=== PATIENT | male | born 1995 | race African-American/Black ===

== ENCOUNTER 2021-10-08 09:37 | Emergency (ER) | payer OTHER, SELFPAY ==
[2021-10-08 10:15] VITALS: BP 136/79; PULSE 72; RESP 18; TEMP 36.7; O2SAT 98; BMI 32.5
--- NOTE | 2021-10-08 10:49 | ED_ITS ---
HPI - Medical Clearance General Chief complaint: Medical Clearance <THOMAS Ruano Last Filed: 10/08/21 11:14> Stated complaint: LOSS OF TASTE STUFFY NOSE <THOMAS Ruano Last Filed: 10/08/21 11:14> Time Seen by Provider: 10/08/21 10:12 <THOMAS Ruano Last Filed: 10/08/21 11:14> Source: patient <THOMAS Ruano Last Filed: 10/08/21 11:14> Mode of arrival: ambulatory <THOMAS Ruaon Last Filed: 10/08/21 11:14> Limitations: no limitations <THOMAS Ruano Last Filed: 10/08/21 11:14> History of Present Illness HPI Narrative: 26-year-old male with history of mild intermittent asthma presents to the ER for COVID-19 evaluation after he had acute onset of loss of sense of taste. He lives at home with his mother recently tested positive for COVID today. Patient works at [employer] and when he was on his break eating a Big Mac he noticed he could not really takes the sauce which is not normal for him. He also noticed that his sense of smell has decreased today. Otherwise he has no symptoms, including no cough, fever, chest pain, myalgias, headache, sore throat, nasal congestion. <THOMAS Ruano Last Filed: 10/08/21 11:14> MD complaint: medical clearance requested and other (Loss of sense of taste) <THOMAS Ruano Last Filed: 10/08/21 11:14> Onset (ago): hour(s) <THOMAS Ruano - Last Filed: 10/08/21 11:14> Reason for Medical Clearance: other (COVID-19 evaluation in the setting of a known exposure) <THOMAS Ruano Last Filed: 10/08/21 11:14> Place: home <THOMAS Ruano Last Filed: 10/08/21 11:14> Alleged Intoxication: No <THOMAS Ruano Last Filed: 10/08/21 11:14> Traumatic Symptoms: denies traumatic injury <THOMAS Ruano Last Filed: 10/08/21 11:14> Associated Symptoms: denies other symptoms <THOMAS Ruano - Last Filed: 10/08/21 11:14> Treatments Prior to Arrival: none <THOMAS Ruano - Last Filed: 10/08/21 11:14> Related Information Allergies/Adverse reactions: Allergies Allergy/AdvReac Type Severity Reaction Status Date / Time , fruits Allergy Unknown swollen Uncoded 08/06/14 00:00 lips FRUIT Allergy Unknown ANAPHYLAXIS Uncoded 07/16/20 16:35 <THOMAS Ruano - Last Filed: 10/08/21 11:14> Review of Systems Review of Systems: Constitutional: No Fever, No Chills ENT/Mouth: No sore throat, No Rhinorrhea, No Swallowing Difficulty + loss of sense of taste and smell Cardiovascular: No Chest Pain, No SOB- Respiratory: No Cough, No Sputum, No Wheezing, No dyspnea Gastrointestinal: No Nausea, No Vomiting, No Diarrhea, No abdominal Pain Musculoskeletal: No joint pain, No Myalgias Skin: No Skin Lesions, No rash Neuro: No Dizziness, No Headache Psych: + Anxiety/Panic, No Depression Heme/Lymph: No Bruising, No Lymphadenopathy <THOMAS Ruano - Last Filed: 10/08/21 11:14> [facility], [facility] Past Medical History Medical History: Medical History (Updated 10/08/21 @ 10:57 by THOMAS Ruano) Asthma <THOMAS Ruano - Last Filed: 10/08/21 11:14> Social History Social History: Social History Advance Directives: No Advance Directives Information Provided: Yes <THOMAS Ruano - Last Filed: 10/08/21 11:14> Physical Exam Vital Signs: Vital Signs: Last Vital Signs Temp 98.0 F 10/08/21 10:15 Pulse 72 10/08/21 10:15 Resp 18 10/08/21 10:15 BP 136/79 10/08/21 10:15 Pulse Ox 98 10/08/21 10:15 BMI result Body Mass Index 32.5 <THOMAS Ruano - Last Filed: 10/08/21 11:14> Vital Signs: Last Vital Signs Temp 98.0 F 10/08/21 10:15 Pulse 72 12/10/21 10:15 Resp 18 10/08/21 10:15 BP 136/79 10/08/21 10:15 Pulse Ox 98 10/08/21 10:15 BMI result Body Mass Index 32.5 <Grey Hobson MD - Last Filed: 10/08/21 17:29> Appearance: Alert. Oriented X3. No acute distress. HEENT: normal inspection CVS: Normal heart rate and rhythm. Pulses normal. Respiratory: No respiratory distress. Lungs clear throughout Skin: Skin warm and dry. Normal skin color. Normal skin turgor. No rashes. Extremities: Atraumatic x4, normal range of motion. Neuro: Oriented X 3. Grossly normal, nonfocal <THOMAS Ruano - Last Filed: 10/08/21 11:14> Course Course Course Narrative: 26-year-old male with history of mild intermittent asthma presents to the ER for acute onset of loss of taste and smell. His mom who he lives with at home is COVID positive. His vital signs are unremarkable and his exam is benign. His lungs are clear and he is in no respiratory distress. He has no other symptoms of COVID-19. His rapid COVID test is positive. Patient was counseled on his diagnosis and management. He will quarantine at home with his mom. Supportive care discussed. Patient stable for discharge home. <THOMAS Ruano - Last Filed: 10/08/21 11:14> MDM - Medical Clearance Lab Data Labs: Lab Results 10/08/21 Range/Units 10:21 COVID-19 (CASI) Positive A (Negative) COVID-19 Clin Com See Note <THOMAS Ruano - Last Filed: 10/08/21 11:14> Lab Results 10/08/21 Range/Units 10:21 COVID-19 (CASI) Positive A (Negative) COVID-19 Clin Com See Note <Grey Hobson MD - Last Filed: 10/08/21 17:29> Discharge Plan Discharge Clinical Impression: COVID-19 <THOMAS Ruano - Last Filed: 10/08/21 11:14> Patient Disposition: Home, Self-Care <THOMAS Ruano - Last Filed: 10/08/21 11:14> Instructions: Covid-19 Viral Syndrome and Novel Coronavirus (ED) Hey/Ath <THOMAS Ruano - Last Filed: 10/08/21 11:14> Additional Instructions: You were found to be COVID-19 POSITIVE today. Your oxygen levels were normal. Rest. Drink plenty of fluids. Do not go out in public for the next 10 days. Take over the counter cold/flu medications as needed for your symptoms. Take Tylenol and/or Motrin as needed for fevers and body aches. Follow up with your doctor this week. If you shortness of breath worsens , if you develop difficulty breathing or any other concerning symptom come back to the ER for further evaluation. <THOMAS Ruano - Last Filed: 10/08/21 11:14> Stand Alone Forms: Work/School Release <THOMAS Ruano - Last Filed: 10/08/21 11:14> Interventions: ED Discharge Assessment Last Done: 10/08/21 11:11 <THOMAS Ruano - Last Filed: 10/08/21 11:14> Discharge Date/Time: 10/08/21 11:12 <THOMAS Ruano - Last Filed: 10/08/21 11:14>
[2021-10-08 11:02] LABS: COVID-19 Test Positive (Negative); IDNOW Serial# 9DD0AD1C
== END 2021-10-08 11:12 | disposition home or self-care (01) ==
PROVIDERS: Physician Assistant; Emergency Provider Emergency Medicine
DX: U07.1 COVID-19 (principal); J34.89 Other specified disorders of nose and nasal sinuses
CPT/HCPCS: 36415; 87635; 99283

== ENCOUNTER 2024-10-15 11:41 | Emergency (ER) | payer SELFPAY ==
--- NOTE | ~2024-10-15 | XR_ITS ---
EXAMINATION: XR CHEST CLINICAL INFORMATION: Cough. COMPARISON: None available. TECHNIQUE: 2 views of the chest were obtained. FINDINGS: Lung volumes are low. There is no gross pneumothorax. Heart size is normal allowing for patient rotation. Distended air-filled bowel/gastric in the left upper quadrant with asymmetric evaluation of the left lung base. Right upper lobe volume loss with elevation of the fissure. Possible prominence of the right paratracheal region difficult to evaluate due to patient rotation. Hazy opacities in the right mid to upper lung and left lower lung. No significant pleural effusion. XR/XR chest 2V IMPRESSION: 1. Right upper lobe volume loss with elevation of the fissure. Possible prominence of the right paratracheal region and right hilar region difficult to evaluate due to patient rotation. Hazy opacities in the right mid to upper lung and left lower lung. 2. Distended air-filled bowel/gastric in the left upper quadrant with asymmetric evaluation of the left lung base. This study was presented today, October 15, 2024, for interpretation. Stat results provided at this time as requested by referring provider. Electronically signed by: Shannan Penn MD 10/15/2024 01:18 PM ALEJANDRA
--- NOTE | 2024-10-15 11:43 | ECG_ITS ---
Test Reason : CHEST PAIN Blood Pressure : / mmHG Vent. Rate : 097 BPM Atrial Rate : 097 BPM P-R Int : 140 ms QRS Dur : 074 ms QT Int : 340 ms P-R-T Axes : 049 028 -06 degrees QTc Int : 431 ms Normal sinus rhythm Nonspecific T wave abnormality Abnormal ECG No previous ECGs available Referred By: Generic ED Physician Electronically Signed By:MYA LOPES
[2024-10-15 11:44] VITALS: BP 146/105; PULSE 101; RESP 18; TEMP 37; O2SAT 96; BMI 28.1
--- NOTE | 2024-10-15 11:47 | ED_ITS ---
HPI - General Adult General Chief complaint: Upper Respiratory Symptoms Stated complaint: Chest tightness, cough Time Seen by Provider: 10/15/24 13:39 Source: patient Mode of arrival: ambulatory Limitations: no limitations History of Present Illness ED Provider: JEREMY Ruiz HPI narrative: 29 yold male with past medical history of asthma presents to ED for chest tightness, night sweats, sore throat, and dry painful cough. Patient states no improvement with [id number]-urgmeza cough medication. Patient denies any recent travel, leg swelling, pitting edema, calf pain, or pleurisy. Related Data Previous Rx's ?Medication ?Instructions ?Recorded amoxicillin 875 mg-potassium 1 tab PO Q12H 5 days #10 tabs 10/15/24 clavulanate 125 mg tablet benzonatate 200 mg capsule 200 mg PO TID PRN cough 5 days #15 10/15/24 caps doxycycline hyclate 100 mg tablet 100 mg PO BID 7 days #14 tabs 10/15/24 prednisone 20 mg tablet 40 mg (2 x 20 mg) PO DAILY 5 days 10/15/24 #10 tabs Allergies Allergy/AdvReac Type Severity Reaction Status Date / Time , fruits Allergy Unknown swollen Uncoded 10/15/24 11:48 lips FRUIT Allergy Unknown ANAPHYLAXIS Uncoded 07/16/20 16:35 Review of Systems Review of Systems: Coughing, sore throat, chest tightness Yes all other systems are reviewed and are negative [facility] Past Medical History Medical History (Updated 10/15/24 @ 15:01 by THOMAS Smith) Asthma Social History Social History Advance Directives: No Advance Directives Information Provided: Yes Physical Exam ED Vital Signs: Vital Signs - 24 hr 10/15/24 11:44 10/15/24 14:14 10/15/24 15:15 Temperature 98.6 F 99.4 F 99.4 F Pulse Rate 101 H 67 67 Respiratory Rate 18 16 16 Blood Pressure 146/105 H 128/80 128/80 Pulse Oximetry 96 94 94 Oxygen Delivery Method Room Air Room Air Room Air BMI result Body Mass Index 28.1 Const General: cooperative, healthy appearing, comfortable, no acute distress, well developed, alert, awake and Physically active Orientation/consciousness: patient oriented x3 HENMT Head: Yes normal to inspection, Yes No palpable skull fracture present, Yes normocephalic and Yes atraumatic Ears: hearing grossly normal bilaterally, external ears normal, TM's normal bilaterally, TM normal on the right, TM normal on the left, EAC's normal, mastoids normal and no periauricular adenopathy Throat: Yes posterior oropharynx normal, Yes tonsils normal and Yes uvula midline Eyes General: appearance normal, both eyes and all related structures Neck Neck: Yes normal visual inspection, Yes full ROM, Yes no lymphadenopathy, Yes no meningeal signs, Yes trachea midline, Yes supple, No anterior neck swelling and No tender Chest Chest palpation & inspection: normal inspection of the chest and normal palpation of entire chest wall Resp Effort & Inspection: normal respiratory effort and able to speak in complete sentences Auscultation: clear to auscultation bilaterally Cardio Jugular venous distension: no JVD Heart sounds: S1 normal heart sound present and S2 normal heart sound present GI Inspection: Yes normal to inspection Palpation (GI): Soft to palpation, not firm, nontender, no guarding and not rigid General: Yes no CVA tenderness Back/Spine/Pelvis Back: no CVA tenderness and No back tenderness Skin General skin exam: no rashes or lesions noted, elasticity normal and turgor normal Neuro General: patient oriented x3, gait normal, tone normal, moves all extremities, Normal light touch and pain sensation, no meningeal signs, no focal motor deficits, CN's II-XI intact bilaterally and normal sensation to monofilament Extrem General: Yes normal to inspection, Yes full ROM and Yes capillary refill normal Psych Appearance: grossly normal, well kempt and not disheveled Course Course Course Narrative: RME, this is a rapid medical exam performed by Kelby Blake please refer to primary provider for complete H&P- 29-year-old male presents for evaluation of cough, shortness of breath and chest tightness. His symptoms started 1 week ago. He has a history of asthma and reports no improvement with his inhalers. Lungs are clear to auscultation, vital signs are stable. Plan for EKG, chest x- ray and viral swabs Medications Administered Discontinued Medications Generic Name Dose Route Start Last Admin Trade Name Freq PRN Reason Stop Dose Admin Prednisone 40 mg 10/15/24 14:03 10/15/24 14:54 Prednisone 20 Mg Tablet PO 10/15/24 14:04 40 mg ONCE ONE Administration Medical Decision Making Medical Decision Making [facility] Narrative: 29-year-old male presents to ED for URI symptoms. SARs COVID influenza came back negative. Chest x-ray positive for pneumonia. X-ray shows distended air air-filled gastric distention and left upper quadrant. Imaging results were discussed with Dr. Bach who agrees the patient is not having any small bowel obstruction and can be discussed. Patient himself states normal bowel movements. Patient is not having any abdominal pain, nausea, vomiting. Not suspecting bowel obstruction. Patient explained worrisome signs and informed to return to the ED immediately. Not suspecting respiratory failure. Differential Diagnosis Differential Diagnoses: The differential diagnosis associated with the presentation includes (Pneumonia, COVID, influenza) Admission/Observation Consideration of admission/observation: Escalation of care including admission/observation considered Lab Data MDM Lab Attestation statement: I reviewed the patient's lab results. Labs: Lab Results 10/15/24 Range/Units 13:25 Influenza Type A (PCR) NEGATIVE (Negative) Influenza Type B (PCR) NEGATIVE (Negative) RSV RNA Qual (PCR) NEGATIVE (Negative) SARS-CoV-2 RNA (RT-PCR) NEGATIVE (Negative) Independent Interpretation I performed an independent interpretation of an: Plain X-Ray Radiology Impression Discussion of test interpretation with radiology: I have reviewed the radiologist's reading. Independent Historian Clinical information obtained from an independent historian. History obtained from or confirmed by: Other (Patient) External Record Review External record reviewed: Other (Private) Prescription Management I considered prescription management with: Antibiotic Discharge Plan Discharge Clinical Impression: Pneumonia Patient Disposition: Home, Self-Care Instructions: Community Acquired Pneumonia (ED) Additional Instructions: Chest x-ray shows pneumonia. You will be discharged with antibiotics. Return to the ED immediately for any chest pain, shortness of breath, abdominal pain, nausea, vomiting, pus cut constipation, calf pain, fever, chills, weakness, dizziness, or any other concerning symptoms. Due to history of asthma will be discharged with steroids. Use albuterol inhaler as needed for shortness of breath and chest tightness. Recommend follow-up with primary care provider Prescriptions: New amoxicillin-pot clavulanate 875-125 mg tablet 1 tab PO Q12H 5 Days Qty: 10 0RF doxycycline hyclate 100 mg tablet 100 mg PO BID 7 Days Qty: 14 0RF prednisone 20 mg tablet 40 mg PO DAILY 5 Days Qty: 10 0RF benzonatate 200 mg capsule 200 mg PO TID PRN (Reason: cough) 5 Days Qty: 15 0RF Stand Alone Forms: Work/School Release Interventions: ED Discharge Assessment Last Done: 10/15/24 15:15 Discharge Date/Time: 10/15/24 15:16 Print Language: [place] Leonean
[2024-10-15 14:05] LABS: Influenza A PCR NEGATIVE (Negative); Influenza B PCR NEGATIVE (Negative); Resp Syncy Virus RNA Qual PCR NEGATIVE (Negative); SARS COV2 PCR INHOUSE NEGATIVE (Negative)
[2024-10-15 14:14] VITALS: BP 128/80; PULSE 67; RESP 16; TEMP 37.4; O2SAT 94
[2024-10-15] MEDS: predniSONE 20 MG TABLET 40 MG PO (14:54)
[2024-10-15 15:15] VITALS: BP 128/80; PULSE 67; RESP 16; TEMP 37.4; O2SAT 94
== END 2024-10-15 15:16 | disposition home or self-care (01) ==
PROVIDERS: Physician Assistant; Emergency Provider Emergency Medicine Emergency Medical Services
DX: J18.9 Pneumonia, unspecified organism (principal); R07.89 Other chest pain; R05.9 Cough, unspecified; Z03.818 Encounter for observation for suspected exposure to other biological agents ruled out
CPT/HCPCS: 0241U; 71046; 93005; 99283; 99284

== ENCOUNTER → 2024-10-15 11:43 | Outpatient (BNV) | payer SELFPAY | PROVIDERS: Emergency Provider Emergency Medicine Emergency Medical Services; Visit Provider Internal Medicine | DX: R94.31 Abnormal electrocardiogram [ECG] [EKG] (principal) | CPT/HCPCS: 93010 ==

== ENCOUNTER 2025-01-05 12:23 | Emergency (ER) | payer SELFPAY ==
[2025-01-05 12:42] VITALS: BP 163/97; PULSE 72; RESP 18; TEMP 36.7; O2SAT 97; BMI 29.7
--- NOTE | 2025-01-05 12:46 | ED.GENADULT ---
HPI - General Adult General Chief complaint: General Medical Stated complaint: pain when using bathroom Time Seen by Provider: 01/05/25 15:29 Source: patient Mode of arrival: ambulatory Limitations: no limitations History of Present Illness ED Provider: Dipika Larios NP HPI narrative: Patient is a 29-year-old male who presents emergency department for evaluation. Reports over the past 5 days he has been experiencing pain to his rectum and burning. He reports palpating about 3 bumps to the rectum. He states that he does have to push it excessively/strain to have a bowel movement at baseline. He states 5 days ago after having a bowel movement he noticed bright red blood on the outside of the stool. He occasionally notices bright red blood on toilet tissue after wiping. Denies known history of hemorrhoids. Related Data Previous Rx's ?Medication ?Instructions ?Recorded amoxicillin 875 mg-potassium 1 tab PO Q12H 5 days #10 tabs 10/15/24 clavulanate 125 mg tablet benzonatate 200 mg capsule 200 mg PO TID PRN cough 5 days #15 10/15/24 caps doxycycline hyclate 100 mg tablet 100 mg PO BID 7 days #14 tabs 10/15/24 prednisone 20 mg tablet 40 mg (2 x 20 mg) PO DAILY 5 days 10/15/24 #10 tabs docusate sodium 100 mg capsule 100 mg PO DAILY #30 caps 01/05/25 (Colace) hydrocortisone acetate 25 mg 25 mg DE BID #24 ea 01/05/25 rectal suppository (Anusol-HC) polyethylene glycol 3350 17 17 g PO DAILY #119 grams 01/05/25 gram/dose oral powder (Miralax) pramoxine 1 % topical foam 1 appl DE QID #15 grams 01/05/25 Allergies Allergy/AdvReac Type Severity Reaction Status Date / Time lactose Allergy Diarrhea Verified 01/05/25 12:44 , fruits Allergy Unknown swollen Uncoded 10/15/24 11:48 lips FRUIT Allergy Unknown ANAPHYLAXIS Uncoded 07/16/20 16:35 Review of Systems Review of Systems: Yes all other systems are reviewed and are negative PMF Past Medical History Attestation statement: The following information was validated with the patient. Source: old records reviewed Medical History (Updated 01/05/25 @ 15:58 by Dipika Larios CNP) Asthma Social History Social History Smoked in Last 30 Days: No Use of substances other than those prescribed or required for medical reasons: No Advance Directives: No Advance Directives Information Provided: No Do you have a plan to hurt others: No Plan Physical Exam ED Vital Signs: Vital Signs - 24 hr 01/05/25 12:42 01/05/25 15:38 01/05/25 16:34 Temperature 98.1 F 97.9 F 97.7 F Pulse Rate 72 66 66 Respiratory Rate 18 14 15 Blood Pressure 163/97 H 142/88 H 142/88 H Pulse Oximetry 97 99 99 Oxygen Delivery Method Room Air Room Air Room Air BMI result Body Mass Index 29.7 Appearance: Alert.?Oriented to person, place and time. No acute distress.?Normal affect. CVS: Heart sounds normal. Normal heart rate and rhythm.? Pulses normal.?? Respiratory: No respiratory distress.? Lung sounds clear to auscultation bilaterally?? Abdomen: Soft and non-tender. Normoactive bowel sounds. Rectal: Performed with product communications manager, ED live truck technician. There is 3 external non thrombosed hemorrhoids without active bleeding tenderness upon palpation. No palpable perirectal mass or fluctuance is appreciated. Skin: Skin warm and dry.? Normal skin color.? ?? Neuro: Moves all extremities spontaneously. Sensation intact bilaterally.Ambulates with normal steady gait. Course Course Course Narrative: RME: 39 yold male presents to the ED for anal pain with lumps for couple of days. He denies any abdominal pain, blood in his stool, fever, or chills. Patient to be evaluated in the ED Medical Decision Making Medical Decision Making MDM Narrative: Patient is a 21-year-old male presents emergency department for evaluation of rectal pain and burning as per HPI. On examination has 30 external non thrombosed hemorrhoids. No presence of fissures. No appreciable perirectal mass or fluctuance to suggest an abscess. No active bleeding. No lesions or rashes. Reviewed methods to ease bowel movement, increase fluid intake, high-fiber diet, MiraLax and Colace in addition to pramoxine foam and Anusol suppositories. Advised outpatient follow-up with PCP. Reviewed worrisome signs and symptoms that would warrant re-evaluation in the emergency department. All questions answered. Stable for discharge Differential Diagnosis Differential Diagnoses: The differential diagnosis associated with the presentation includes (See narrative above) External Record Review External record reviewed: Outpatient record Prescription Management I considered prescription management with: Other (See narrative above) Discharge Plan Discharge Clinical Impression: Hemorrhoids Patient Disposition: Home, Self-Care Instructions: Hemorrhoids (ED) Additional Instructions: As discussed, you have multiple hemorrhoids which are likely resultant from your excessive straining to have bowel movement. To medications has been sent to the pharmacy to help ease your efforts of having a bowel movement MiraLax which is a powder to place in 8 oz of water intake daily, be sure that you are drinking at least 8 glasses of water daily, in addition Colace which is a capsule that you will take once daily. I have also sent a prescription for pramoxine foam to apply topically on the outside of the anus in addition to Anusol suppository which is inserted into the rectum. Follow-up with your primary care doctor. You may return with new or worsening symptoms or concerns. Prescriptions: New pramoxine 1 % foam 1 appl DE QID Qty: 15 0RF hydrocortisone acetate [Anusol-HC] 25 mg suppository 25 mg DE BID Qty: 24 0RF docusate sodium [Colace] 100 mg capsule 100 mg PO DAILY Qty: 30 0RF polyethylene glycol 3350 [Miralax] 17 gram/dose powder 17 g PO DAILY Qty: 119 0RF No Action amoxicillin-pot clavulanate 875-125 mg tablet 1 tab PO Q12H 5 Days Qty: 10 0RF doxycycline hyclate 100 mg tablet 100 mg PO BID 7 Days Qty: 14 0RF prednisone 20 mg tablet 40 mg PO DAILY 5 Days Qty: 10 0RF benzonatate 200 mg capsule 200 mg PO TID PRN (Reason: cough) 5 Days Qty: 15 0RF Referrals: Physician,None [Primary Care Provider] - Stand Alone Forms: Work/School Release Interventions: ED Discharge Assessment Last Done: 01/05/25 16:34 Discharge Date/Time: 01/05/25 16:35 Print Language: [place]an
[2025-01-05 15:38] VITALS: BP 142/88; PULSE 66; RESP 14; TEMP 36.6; O2SAT 99
[2025-01-05 16:34] VITALS: BP 142/88; PULSE 66; RESP 15; TEMP 36.5; O2SAT 99
== END 2025-01-05 16:35 | disposition home or self-care (01) ==
PROVIDERS: Emergency Provider Emergency Medicine
DX: K64.5 Perianal venous thrombosis (principal); K62.89 Other specified diseases of anus and rectum; Z79.899 Other long term (current) drug therapy
CPT/HCPCS: 99283; 99284